=== PATIENT | female | born 1960 | race Caucasian/White ===

== ENCOUNTER → 2018-01-12 | Outpatient (CLI) | payer OTHER ==
[~2018-01-12] MED LIST: IOPAMIDOL (ISOVUE-300) 100 ML BTL ONE
== END ==
LOC: FIMAGING 11:48
PROVIDERS: ATTEND Physician Assistant
DX: D73.9 Disease of spleen, unspecified (principal); Q89.09 Congenital malformations of spleen
CPT/HCPCS: Q9967